=== PATIENT | male | born 1960 | race Caucasian/White ===

== ENCOUNTER 2016-09-08 14:02 | Emergency (ER) | payer OTHER ==
[2016-09-08 15:06] VITALS: BP 138/75
--- NOTE | 2016-09-08 15:24 | UC ---
Knee Pain HPI - HPI Summary HPI Summary: R knee pain gradually worsening for about a week. First noticed a few hours after a mild R ankle sprain. R ankle only hurt for an hour or so, hasn't bothered him since. Now having anterior pain and medial pain, especially with flexion and external rotation. - History of Current Complaint Chief Complaint: UCLowerExtremity Stated Complaint: RIGHT KNEE INJURY/PAIN Time Seen by Provider: 09/08/16 14:50 Hx Obtained From: Patient Onset/Duration: Gradual Onset, Lasting Days Severity Initially: Mild Severity Currently: Moderate Character: Aching, Stiffness Aggravating Factor(s): Weight Bearing, Stairs Alleviating Factor(s): Rest Associated Signs And Symptoms: Positive: Negative Able to Bear Weight: Yes - Allergies/Home Medications Allergies/Adverse Reactions: Allergies Allergy/AdvReac Type Severity Reaction Status Date / Time Pneumococcal Polysaccharides Allergy Severe Airway Verified 09/08/16 14:47 [From Pneumovax] Obstruction Morphine and Related Allergy Intermediate FACIAL Verified 09/08/16 14:47 SWELLING Pregabalin [From Lyrica] Allergy Intermediate Blurred Verified 09/08/16 14:47 Vision Flu Virus Vaccine Allergy Unknown See Comment Verified 09/08/16 14:47 Home Medications: Home Medications Bisacodyl EC TAB* [Dulcolax EC TAB*] 20 mg PO BID 09/08/16 [History Confirmed ] Carvedilol TAB* [Coreg TAB*] 6.25 mg PO BID 09/08/16 [History Confirmed 09/08/16 ] Clopidogrel TAB* [Plavix TAB*] 75 mg PO DAILY 09/08/16 [History Confirmed ] Diazepam TAB(*) [Valium TAB(*)] 10 mg PO Q8H PRN 09/08/16 [History Confirmed ] Linaclotide [Linzess] 145 mcg PO DAILY 09/08/16 [History Confirmed 09/08/16] Pantoprazole TAB (NF) [Protonix TAB (NF)] 1 tab DAILY 09/08/16 [History Confirmed 09/08/16] Potassium Chlor TAB* [Klor Con ER TAB*] 20 meq PO BID 09/08/16 [History Confirmed 09/08/16] Torsemide TAB* [Demadex*] 20 mg PO BID 09/08/16 [History Confirmed 09/08/16] glipiZIDE TAB* [Glucotrol TAB*] 2.5 mg PO DAILY 09/08/16 [History Confirmed ] oxyCODONE SR TAB(*) [Oxycontin 20 mg (*)] 20 mg QID PRN 09/08/16 [History Confirmed 09/08/16] oxyCODONE TAB* [Roxycodone TAB 5 mg*] 10 mg PO Q8H PRN 09/08/16 [History Confirmed 09/08/16] PMH/Surg Hx/FS Hx/Imm Hx Endocrine History Of: Reports: Dyslipidemia Denies: Diabetes, Thyroid Disease, Hyperthyroidism, Hypothyroidism Cardiovascular History Of: Reports: Hypertension Denies: Pacemaker/ICD, Congestive Heart Failure Respiratory History Of: Reports: COPD, Asthma GI/ History Of: Reports: Gastrointestinal Bleed Denies: Gastroesophageal Reflux, Ulcer, Gall Bladder Disease, Kidney Stones, Diverticulitis, Renal Disease, Urosepsis Neurological History Of: Denies: TIA, CVA, Dementia, Seizures, Migraine Psychological History Of: Reports: Anxiety Denies: Depression, Bipolar Disorder, Schizophrenia, Post Traumatic Stress Disorder Cancer History Of: Denies: Lung Cancer, Colorectal Cancer, Breast Cancer, Prostate Cancer, Cervical Cancer Other History Of: Hepatitis C - He had this in 1999. He took interferon taken and he has "recovered." , Anticoagulant Therapy - He was on Plavix, but that was stopped due to the hematochezia. Negative For: HIV, Hepatitis B - Surgical History Surgical History: Yes Surgery Procedure, Year, and Place: CELIAC STENT PLACEMENT--2009 SAFE FOR 3T CONDITIONAL 5 ([address]). BACK SX 2003. MESENTERIC ARTERY PERIPHERAL STENT REPLACEMENT JULY 20141.5 ONLY-([address]). PT HAS CARDS INFO RECORDED. CATARACTS 2014. Carparal tunnel. ELBOW nerve released - Family History Known Family History: Positive: Hypertension - Social History Lives: With Family Alcohol Use: None Substance Use Type: None Smoking Status (MU): Former Smoker Type: Cigarettes Have You Smoked in the Last Year: No When Did the Patient Quit Smoking/Using Tobacco: 1996 - Immunization History Most Recent Influenza Vaccination: 2016 Most Recent Tetanus Shot: UTD Most Recent Pneumonia Vaccination: N/A Review of Systems Constitutional: Negative Skin: Negative Eyes: Negative ENT: Negative Respiratory: Negative Cardiovascular: Negative Gastrointestinal: Negative Genitourinary: Negative Motor: Negative Neurovascular: Negative Musculoskeletal: Arthralgia Neurological: Negative Psychological: Negative All Other Systems Reviewed And Are Negative: Yes Physical Exam Triage Information Reviewed: Yes Appearance: Well-Appearing, Obese Vital Signs: Initial Vital Signs Temp 97.7 F 09/08/16 14:58 Pulse 72 09/08/16 14:58 Resp 18 09/08/16 14:58 BP 138/75 09/08/16 14:58 Pulse Ox 98 09/08/16 14:58 Vital Signs Reviewed: Yes Eye Exam: Normal Eyes: Positive: Conjunctiva Clear ENT Exam: Normal ENT: Positive: Normal ENT inspection, Hearing grossly normal, Pharynx normal, TMs normal Dental Exam: Normal Neck exam: Normal Neck: Positive: Supple, Nontender Respiratory Exam: Normal Respiratory: Positive: Chest non-tender, Lungs clear, No accessory muscle use Cardiovascular Exam: Normal Cardiovascular: Positive: RRR, No Murmur Musculoskeletal: Positive: ROM Limited @ - R knee Neurological Exam: Normal Neurological: Positive: Alert Psychological Exam: Normal Skin Exam: Normal Knee Pain Course/Dx - Differential Dx/Diagnosis Provider Diagnoses: R knee pain. Elevated blood pressure due to pain Discharge - Discharge Plan Condition: Stable Disposition: HOME Patient Education Materials: Knee Pain (ED) Referrals: Canelo Jackson MD [Primary Care Provider] - Additional Instructions: You can take 650-1000mg acetaminophen as needed for pain. Keep using the knee for gentle daily activities and start physical therapy if your pain does not loc in the next few days.
--- NOTE | 2016-09-08 15:53 | RAD ---
INDICATION: Right knee pain. TECHNIQUE: 4 views of the right knee were obtained. FINDINGS: The bones are in normal alignment. No joint effusion or fracture is seen. There is a bony exostosis arising from the proximal fibula measuring 3.1 x 0.6 cm in size possibly representing a small osteochondroma. No other focal osseous abnormalities are seen. Joint spaces appear maintained. IMPRESSION: 1. NO EVIDENCE FOR FRACTURE. 2. POSSIBLE SMALL OSTEOCHONDROMA ARISING FROM THE PROXIMAL FIBULA.
== END 2016-09-08 16:04 | disposition home or self-care (01) ==
LOC: UCCORT 14:02
DX: M25.561 Pain in right knee (principal); R03.0 Elevated blood-pressure reading, without diagnosis of hypertension; E78.5 Hyperlipidemia, unspecified; I10 Essential (primary) hypertension; J44.9 Chronic obstructive pulmonary disease, unspecified; F41.9 Anxiety disorder, unspecified; Z98.49 Cataract extraction status, unspecified eye; Z88.5 Allergy status to narcotic agent; Z88.7 Allergy status to serum and vaccine; Z87.891 Personal history of nicotine dependence
CPT/HCPCS: 99212; G0463

== ENCOUNTER 2018-06-20 12:23 | Emergency (ER) | payer MEDICARE, MEDICAID ==
--- OUTSIDE RECORDS SUMMARY | 2018-06-20 12:42 | XMS REPORT | Continuity of Care Document ---
:1960 External Reference #:[id number] Author Name oLng James DO, MPH Address [address] [place] [address], [address] [place] [address] Care Team Providers Name Role Phone Canelo Jackson M.D. 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 Primary Care Physician Unavailable Payers Type Date Identification Numbers Payment Provider Subscriber Effective: 2017 Policy Number: [id number] [employer] [place] Julio Dowell PayID: [id number] [address] [facility] [place] [address] Effective: 2016 Policy Number: [id number] [employer] [place] Julio Dowell Expires: 2017 PayID: [id number] [address] [place] [address] Effective: 1999 Policy Number: [id number] [facility] Julio Puente Magalys Onset: 1999 Group Number: [id number] [id number] Group Name: Fax - [phone] [place] [address] PayID: [id number] Expires: 2016 Policy Number: [id number] [facility] Julio Puente Magalys PayID: [id number] [address] [address] [place] [address] Effective: 2016 Policy Number: [id number] Medicaid [place] Julio Punete Magalys Expires: 2016 PayID: [id number] [address] [place] [id number] Expires: 2016 Policy Number: [id number] [facility] Julio J Magalys PayID: [id number] [address] [address] [place] [address] Effective: 2016 Policy Number: [id number] Medicaid [place] Julioclaudia Dowell PayID: [id number] [address] [place] [address] Advance Directives Description No Information Available Problems Description No Information Family History Date Family Member(s) Problem(s) Comments Father due to NC () Mother due to Lung Cancer () Children None Siblings 5 one passed due to cancer in 2009 Grandchildren None Social History Type Date Description Comments Sex Unknown Marital Status Occupation Unemployed Work Status Not Currently Working Cigarette Use Former Cigarette Smoker 3 Packs Daily ETOH Use Denies alcohol use Tobacco Use Start: Unknown End: Unknown Patient is a former smoker Smoking Status Reviewed: 05/26/18 Patient is a former smoker Allergies, Adverse Reactions, Alerts Date Description Reaction Status Severity Comments 10/11/2014 Lyrica blurred vision Active 10/11/2014 Morphine Urticaria, swelling Active 10/11/2014 Pneumococcal Vaccines Anaphylaxis Active Medications Medication Date Status Form Strength Qnty SIG Indications Ordering Provider Oxycodone HCL 12/23/ Active Tablets 20mg 120ta si by Heather James bs mouth Long, every 4 to DO, MPH 6 hours as directed chronic pain patient, fill under medicare Oxycodone HCL 11/10/ Active Tablets 10mg 120ta si by Heather James bs mouth Long, every 4 to DO, MPH 6 hours as directed chronic pain patient, fill under Pravastatin / Active Tablets 40mg Unknown Sodium 0000 Citalopram / Active Tablets 40mg 45tab si.5 Unknown Hydrobromide 0000 s by mouth every day as directed Albuterol / Active Aerosol 90mcg/Dos two puffs Unknown Inhalation 0000 e by mouth every 4-6 hours for shortness of breath Aspirin / Active Chewtabs 81mg si by Unknown 0000 mouth every day as directed janna test test only Albuterol Sulfate / Active Nebulizer (2.5mg/3M Unknown 0000 L) 0.083% Buspirone HCL / Active Tablets 10mg si/2 Unknown 0000 by mouth every 6 hours Carvedilol / Active Tablets 3.125mg 1 by mouth Unknown 0000 twice daily Diazepam / Active Tablets 5mg si by Unknown 0000 mouth every 6H chronic pain patient Torsemide / Active Tablets 20mg Unknown 0000 Pantoprazole / Active Tablets DR 40mg 1 by mouth Unknown Sodium 0000 daily Spironolactone / Active Tablets 25mg 1 by mouth Unknown 0000 twice daily Tudorza Pressair / Active Aerosol 400mcg/Ac Unknown 0000 t Symbicort / Active Aerosol 160-4.5mc Unknown 0000 g/Act Ventolin HFA / Active Aerosol 108(90Bas 1-2 puffs Unknown 0000 e) as needed mcg/Act every 4-6 hours for shortness for breath Docusate Sodium & / Active Tablets 8.6-50mg si Unknown Senna Stimulant 0000 three Laxative/Stool times a Softener day as directed Plavix / Active Tablets 75mg 1 by mouth Unknown 0000 daily Miralax / Active Powder 3350NF si Unknown 0000 scoop in 8oz of water x 3 nights as directed Linzess / Active Capsules 145mcg 1 cap by Unknown 0000 mouth every in the morning on empty stomach at least thirty minutes before first meal. Bisacodyl Ec / Active Tablets DR 5mg for Unknown 0000 constipati on. Lidocaine / Active Cream 4% apply to Unknown 0000 affected area three time a day as needed Diclofenac Sodium / Active Gel 3% apply 0.5 Unknown 0000 gm to the lower back 3-4 times a day Xtampza ER 12/10/ Hx C12a 27mg 60uni take one Jacob 2018 - ts by mouth Long, 12/23/ every 12 DO, MPH 2018 hours as directed chronic pain. Zanaflex 08/11/ Hx Tablets 4mg 60tab si/2-1 Jacob 2018 - s by mouth Long, 05/13/ twice a DO, MPH 2018 day as directed chronic pain patient, fill under medicare Oxycodone HCL 05/14/ Hx Tablets 20mg 21tab si by Jacob 2017 - s mouth Long, 12/23/ every 8 DO, MPH 2018 hours as directed chronic pain patient Oxycodone HCL 05/05/ Hx Tablets 10mg 150ta si-2 by Jacob 2017 - bs mouth Long, 11/10/ every 4 to DO, MPH 2018 6 hours as directed chronic pain patient, dosage decrease, fill under ok to fill today Oxycodone HCL 05/20/ Hx Tablets 10mg 90tab si by Jacob 2015 - s mouth Long, 05/14/ every 8 DO, MPH 2017 hours as directed chronic pain patient Amitiza 03/06/ Hx Capsules 8mcg 60cap si by Jacob 2015 - s mouth Long, 08/26/ every 12 DO, MPH 2017 hours. as directed Cymbalta 12/03/ Hx Caps DR 30mg 60cap si by Jacob 2015 - Part s mouth Logn, 05/06/ twice DO, MPH 2016 daily as directed chronic pain patient Oxycodone HCL 10/10/ Hx Tablets 20mg 120ta si by Jacob 2015 - bs mouth Long, 05/05/ every 4 to DO, MPH 2016 6 hours as directed chronic pain patient fill under wc Oxycodone HCL 06/06/ Hx Tablets 10mg 180ta si-2 by Jacob 2015 - bs mouth Long, 10/10/ every 4 to DO, MPH 2015 6 hours as directed chronic pain patient Hysingla ER 02/26/ Hx T24a 30mg 60uni si by Jacob 2014 - ts mouth Long, 05/07/ every day DO, MPH 2014 as directed chronic pain patient Hysingla ER 02/15/ Hx T24a 30mg 30uni si by Jacob 2014 - ts mouth Long, 02/26/ every day DO, MPH 2014 chronic pain patient Oxycontin 12/18/ Hx Tab ER 12H 30mg 60tab si by Genesis James - Abuse-Det s mouth Long, 02/15/ every 12 DO, MPH 2014 hours Dilaudid 12/18/ Hx Tablets 4mg 180ta si by Jacob 2014 - bs mouth Long, 02/15/ every 4-6 DO, MPH 2014 hours as directed chronic pain patient Oxycontin 12/05/ Hx Tab ER 12H 20mg 60tab si by Genesis James - Abuse-Det s mouth Long, 12/18/ every 12 DO, MPH 2015 hours chronic pain patient Oxycontin 11/12/ Hx Tab ER 12H 10mg 60tab take one Genesis James - Abuse-Det s tablet by Long, 12/05/ mouth DO, MPH 2014 every 12 hours as directed chronic pain. Dilaudid 11/05/ Hx Tablets 2mg 240ta si-2 Genesis James - bs every 6 Long, 12/18/ hours as DO, MPH 2014 directed chronic pain patient Gralise 10/29/ Hx Tablets 600mg 30tab si by Jacob 2014 - s mouth Long, 02/15/ every at DO, MPH 2014 night Oxymorphone HCL 10/18/ Hx Tablets ER 10mg 60tab 1 by mouth Jacob, ER 2014 - 12HR s every 12 Long, 11/05/ hours DO, MPH 2014 Oxymorphone HCL 10/18/ Hx Tablets 10mg 120ta si Genesis James bs every 4 to [place], 11/05/ 6 hours DO, MPH 2014 chronic pain patient Gabapentin 10/18/ Hx Capsules 300mg 90cap si by Jacob 2014 - s mouth Long, 04/13/ three DO, MPH 2016 times a day as directed Opana 10/11/ Hx Tablets 5mg 120ta si by Jacob 2014 - bs mouth Long, 11/05/ every 6 to DO, MPH 2014 8 hours as directed chronic pain patient Flector 10/11/ Hx Patches 1.3% 60uni si Jacob 2014 - ts apply to Long, 07/04/ affected DO, MPH 2016 area every 12 hours chronic pain patient Clopidogrel / Hx Tablets 75mg Unknown Bisulfate - 2014 Hydrocodone-Aceta / Hx Tablets 10-325mg 1-2 to by Unknown minophen 0000 - mouth 10/11/ every 4 2014 hours Tizanidine HCL / Hx Tablets 4mg si by Unknown 0000 - mouth 10/29/ every 8 2014 hours as directed Diazepam // Hx Tablets 5mg si by Unknown 0000 - mouth 10/11/ every 6 2014 hours prn Trazodone HCL 00/ Hx Tablets 100mg si-3 Jacob 0000 - by mouth Long, 10/29/ every DO, MPH 2014 night at bedtime as directed Hydromorphone HCL / Hx T24a 12mg 1 by mouth Unknown ER 0000 - every 12 10/11/ hours 2014 Ipratropium /00/ Hx Solution 0.02% Unknown [place] 0000 - 2017 Prednisone 00/00/ Hx Tablets 20mg taper Unknown 0000 - 2017 Bystolic /00/ Hx Tablets 5mg 30tab 1 qd Unknown 0000 - s 2017 Gabapentin /00/ Hx Capsules 100mg si by Unknown 0000 - mouth at night 2017 Fiber Complete 00/00/ Hx Tablets Unknown 0000 - 2017 Glipizide ER 00/ Hx Tablets ER 2.5mg 1/2 by Unknown 0000 - 24HR mouth daily 2017 Klor-Con 10 0000/ Hx Tablets ER 10Meq 1 by mouth Unknown 0000 - three 05/13/ times a 2017 day Diphenhydramine 00/ Hx Capsules 25mg 1 by mouth Unknown HCL 0000 - daily 2017 Cyclobenzaprine 00/ Hx Tablets 10mg si by Unknown HCL 0000 - mouth 05/13/ twice a 2017 day as directed Fentanyl 00/00/ Hx Patches 50mcg/HR si Unknown 0000 - 72HR applied 09/07/ q72h as 2017 directed chronic pain patient Lidocaine 00/00/ Hx Patches 5% apply 1 Unknown 0000 - every 10 08/09/ hours to 2017 affected area as directed Linzess 00/00/ Hx Capsules 145mcg 1 cap by Unknown 0000 - mouth 07/27/ every in 2016 the morning on empty stomach at least thirty minutes before first meal. Lidocaine 00/00/ Hx Ointment 5% apply Unknown 0000 - 0.5-1 0816/ grams to 2017 affected area 3-4 times a day Hydroxyzine HCL /00/ Hx Tablets 25mg si by Unknown 0000 - mouth 02/03/ 2017 evening as directed chronic Immunizations Description No Information Available Vital Signs Date Vital Result Comment 05/26/2018 9:06am BP Systolic 136 mmHg BP Diastolic 82 mmHg Heart Rate 84 /min Respiratory Rate 20 /min Height 64 inches 5'4" Weight 200.00 lb Pain Level 7 Pain at this time. Pain Level With Medicine 6 on average with meds Pain Level Without Medicine 10 10 without meds BMI (Body Mass Index) 34.3 kg/m2 05/13/2018 8:59am BP Systolic 144 mmHg BP Diastolic 86 mmHg Heart Rate 82 /min Respiratory Rate 20 /min Height 64 inches 5'4" Weight 200.00 lb Pain Level 6 Pain at this time. Pain Level With Medicine 5 on average with meds Pain Level Without Medicine 10 03/02 without meds BMI (Body Mass Index) 34.3 kg/m2 04/27/2018 9:26am BP Systolic 140 mmHg BP Diastolic 86 mmHg Heart Rate 82 /min Respiratory Rate 20 /min Height 64 inches 5'4" Weight 200.00 lb Pain Level 8 Pain at this time. Pain Level With Medicine 7 on average with meds Pain Level Without Medicine 10 03/02 without meds BMI (Body Mass Index) 34.3 kg/m2 04/11/2018 9:15am BP Systolic 132 mmHg BP Diastolic 84 mmHg Heart Rate 80 /min Respiratory Rate 20 /min Height 64 inches 5'4" Weight 200.00 lb Pain Level 6 Pain at this time. Pain Level With Medicine 6 on average with meds Pain Level Without Medicine 10 03/02 without meds BMI (Body Mass Index) 34.3 kg/m2 03/24/2018 10:06am BP Systolic 140 mmHg BP Diastolic 82 mmHg Heart Rate 88 /min Respiratory Rate 20 /min Height 64 inches 5'4" Weight 204.00 lb Pain Level 7 Pain at this time. Pain Level With Medicine 6 on average with meds Pain Level Without Medicine 03/02 without meds BMI (Body Mass Index) 35.0 kg/m2 03/10/2018 8:51am BP Systolic 148 mmHg BP Diastolic 84 mmHg Heart Rate 80 /min Respiratory Rate 20 /min Height 64 inches 5'4" Weight 204.00 lb Pain Level 7 Pain at this time. Pain Level With Medicine 6 on average with meds Pain Level Without Medicine 10 03/02 without meds BMI (Body Mass Index) 35.0 kg/m2 02/22/2018 9:48am BP Systolic 148 mmHg BP Diastolic 86 mmHg Heart Rate 82 /min Respiratory Rate 20 /min Height 64 inches 5'4" Weight 220.00 lb Pain Level 7 Pain at this time. Pain Level With Medicine 7 on average with meds Pain Level Without Medicine 10 03/02 without meds BMI (Body Mass Index) 37.8 kg/m2 02/11/2018 8:53am Respiratory Rate 20 /min Height 64 inches 5'4" Pain Level Without Medicine 10 03/02 without meds 01/21/2018 10:59am BP Systolic 140 mmHg BP Diastolic 86 mmHg Heart Rate 80 /min Respiratory Rate 20 /min Height 64 inches 5'4" Weight 205.00 lb Pain Level 9 Pain at this time. Pain Level With Medicine 9 on average with meds Pain Level Without Medicine 10 03/02 without meds BMI (Body Mass Index) 35.2 kg/m2 01/10/2018 9:54am BP Systolic 136 mmHg BP Diastolic 86 mmHg Heart Rate 84 /min Respiratory Rate 20 /min Height 64 inches 5'4" Weight 205.00 lb Pain Level 8 Pain at this time. Pain Level With Medicine 7 on average with meds Pain Level Without Medicine 10 03/02 without meds BMI (Body Mass Index) 35.2 kg/m2 12/23/2017 10:03am BP Systolic 152 mmHg BP Diastolic 92 mmHg Heart Rate 104 /min Respiratory Rate 20 /min Height 64 inches 5'4" Weight 215.00 lb Pain Level 9 Pain at this time. Pain Level With Medicine 8 on average with meds Pain Level Without Medicine 10 03/02 without meds BMI (Body Mass Index) 36.9 kg/m2 12/10/2017 9:14am BP Systolic 128 mmHg BP Diastolic 84 mmHg Heart Rate 80 /min Respiratory Rate 20 /min Height 64 inches 5'4" Weight 230.00 lb Pain Level 9 Pain at this time. Pain Level With Medicine 9 on average with meds Pain Level Without Medicine 10 03/02 without meds BMI (Body Mass Index) 39.5 kg/m2 12/09/2017 9:16am BP Systolic 144 mmHg BP Diastolic 78 mmHg Heart Rate 76 /min Respiratory Rate 20 /min Height 64 inches 5'4" Weight 230.00 lb Pain Level 8 Pain at this time. Pain Level With Medicine 5 on average with meds Pain Level Without Medicine 10 03/02 without meds BMI (Body Mass Index) 39.5 kg/m2 11/11/2017 8:59am BP Systolic 130 mmHg BP Diastolic 78 mmHg Heart Rate 74 /min Respiratory Rate 20 /min Height 64 inches 5'4" Weight 230.00 lb Pain Level 6 Pain at this time. Pain Level With Medicine 5 on average with meds Pain Level Without Medicine 10 03/02 without meds BMI (Body Mass Index) 39.5 kg/m2 11/10/2017 9:02am BP Systolic 144 mmHg BP Diastolic 86 mmHg Heart Rate 100 /min Respiratory Rate 20 /min Height 64 inches 5'4" Weight 230.00 lb O2 % BldC Oximetry 85 % Pain Level 9 Pain at this time. Pain Level With Medicine 9 on average with meds Pain Level Without Medicine 10 03/02 without meds BMI (Body Mass Index) 39.5 kg/m2 10/12/2017 9:18am BP Systolic 142 mmHg BP Diastolic 88 mmHg Heart Rate 92 /min Respiratory Rate 20 /min Height 64 inches 5'4" Weight 230.00 lb O2 % BldC Oximetry 92 % Pain Level 7 Pain at this time. Pain Level With Medicine 6 on average with meds Pain Level Without Medicine 10 03/02 without meds BMI (Body Mass Index) 39.5 kg/m2 10/11/2017 9:19am BP Systolic 144 mmHg BP Diastolic 86 mmHg Heart Rate 88 /min Respiratory Rate 20 /min Height 64 inches 5'4" Weight 230.00 lb Pain Level 8 Pain at this time. Pain Level With Medicine 7 on average with meds Pain Level Without Medicine 10 03/02 without meds BMI (Body Mass Index) 39.5 kg/m2 09/10/2017 10:11am BP Systolic 140 mmHg BP Diastolic 82 mmHg Heart Rate 80 /min Respiratory Rate 20 /min Height 64 inches 5'4" Weight 238.00 lb Pain Level 8 Pain at this time. Pain Level With Medicine 7 on average with meds Pain Level Without Medicine 10 03/02 without meds BMI (Body Mass Index) 40.8 kg/m2 09/09/2017 10:28am BP Systolic 142 mmHg BP Diastolic 86 mmHg Heart Rate 84 /min Respiratory Rate 20 /min Height 64 inches 5'4" Weight 238.00 lb Pain Level 7 Pain at this time. Pain Level With Medicine 6 on average with meds Pain Level Without Medicine 10 03/02 without meds BMI (Body Mass Index) 40.8 kg/m2 08/11/2017 9:21am BP Systolic 136 mmHg BP Diastolic 86 mmHg Heart Rate 82 /min Respiratory Rate 20 /min Height 64 inches 5'4" Weight 238.00 lb Pain Level 7 Pain at this time. Pain Level With Medicine 6 on average with meds Pain Level Without Medicine 10 03/02 without meds BMI (Body Mass Index) 40.8 kg/m2 08/10/2017 9:06am BP Systolic 136 mmHg BP Diastolic 84 mmHg Heart Rate 86 /min Respiratory Rate 20 /min Height 64 inches 5'4" Weight 238.00 lb Pain Level 8 Pain at this time. Pain Level With Medicine 7 on average with meds Pain Level Without Medicine 10 03/02 without meds BMI (Body Mass Index) 40.8 kg/m2 07/14/2017 2:04pm BP Systolic 136 mmHg BP Diastolic 82 mmHg Heart Rate 84 /min Respiratory Rate 20 /min Height 64 inches 5'4" Weight 238.00 lb Pain Level 7 Pain at this time. Pain Level With Medicine 6 on average with meds Pain Level Without Medicine 10 03/02 without meds BMI (Body Mass Index) 40.8 kg/m2 07/07/2017 9:29am BP Systolic 142 mmHg BP Diastolic 86 mmHg Heart Rate 84 /min Respiratory Rate 20 /min Height 64 inches 5'4" Weight 238.00 lb Pain Level 7 Pain at this time. Pain Level With Medicine 6 on average with meds Pain Level Without Medicine 10 03/02 without meds BMI (Body Mass Index) 40.8 kg/m2 06/14/2017 2:50pm BP Systolic 144 mmHg BP Diastolic 86 mmHg Heart Rate 84 /min Respiratory Rate 20 /min Height 64 inches 5'4" Weight 238.00 lb Pain Level 7 Pain at this time. Pain Level With Medicine 6 on average with meds Pain Level Without Medicine 03/02 without meds BMI (Body Mass Index) 40.8 kg/m2 06/07/2017 9:51am BP Systolic 128 mmHg BP Diastolic 80 mmHg Heart Rate 76 /min Respiratory Rate 20 /min Height 64 inches 5'4" Weight 238.00 lb Pain Level 7 Pain at this time. Pain Level With Medicine 6 on average with meds Pain Level Without Medicine 10 03/02 without meds BMI (Body Mass Index) 40.8 kg/m2 05/25/2017 2:16pm BP Systolic 148 mmHg BP Diastolic 80 mmHg Heart Rate 84 /min Respiratory Rate 20 /min Height 64 inches 5'4" Weight 238.00 lb Pain Level 7 Pain at this time. Pain Level With Medicine 6 on average with meds Pain Level Without Medicine 10 03/02 without meds BMI (Body Mass Index) 40.8 kg/m2 05/14/2017 10:25am BP Systolic 140 mmHg BP Diastolic 86 mmHg Heart Rate 74 /min Respiratory Rate 20 /min Height 64 inches 5'4" Weight 238.00 lb Pain Level 6 Pain at this time. Pain Level With Medicine 5 on average with meds Pain Level Without Medicine 10 03/02 without meds BMI (Body Mass Index) 40.8 kg/m2 05/05/2017 11:12am BP Systolic 136 mmHg BP Diastolic 84 mmHg Heart Rate 82 /min Respiratory Rate 20 /min Height 64 inches 5'4" Weight 238.00 lb Pain Level 8 Pain at this time. Pain Level With Medicine 7 on average with meds Pain Level Without Medicine 10 03/02 without meds BMI (Body Mass Index) 40.8 kg/m2 04/23/2017 1:05pm BP Systolic 138 mmHg BP Diastolic 82 mmHg Heart Rate 78 /min Respiratory Rate 20 /min Height 64 inches 5'4" Weight 238.00 lb Pain Level 7 Pain at this time. Pain Level With Medicine 6 on average with meds Pain Level Without Medicine 10 03/02 without meds BMI (Body Mass Index) 40.8 kg/m2 04/07/2017 10:46am BP Systolic 140 mmHg BP Diastolic 78 mmHg Heart Rate 76 /min Respiratory Rate 20 /min Height 64 inches 5'4" Pain Level 4 Pain at this time. Pain Level With Medicine 4 on average with meds Pain Level Without Medicine 03/02 without meds 03/24/2017 2:21pm BP Systolic 144 mmHg BP Diastolic 86 mmHg Heart Rate 80 /min Respiratory Rate 20 /min Height 64 inches 5'4" Weight 238.00 lb Pain Level 4 Pain at this time. Pain Level With Medicine 4 on average with meds Pain Level Without Medicine 03/02 without meds BMI (Body Mass Index) 40.8 kg/m2 03/08/2017 11:07am BP Systolic 136 mmHg BP Diastolic 80 mmHg Heart Rate 76 /min Respiratory Rate 16 /min Height 64 inches 5'4" Weight 238.00 lb Pain Level 7 11/30, Pain at this time. Pain Level With Medicine 7 11/30, on average with meds Pain Level Without Medicine 10 03/02 without meds BMI (Body Mass Index) 40.8 kg/m2 02/18/2017 2:31pm BP Systolic 132 mmHg BP Diastolic 78 mmHg Heart Rate 76 /min Respiratory Rate 20 /min Height 64 inches 5'4" Weight 236.00 lb Pain Level 8 Pain at this time. Pain Level With Medicine 7 on average with meds Pain Level Without Medicine 10 03/02 without meds BMI (Body Mass Index) 40.5 kg/m2 02/03/2017 11:04am BP Systolic 136 mmHg BP Diastolic 80 mmHg Heart Rate 72 /min Respiratory Rate 16 /min Height 64 inches 5'4" Weight 236.00 lb Pain Level 7 7/10, Pain at this time. Pain Level With Medicine 7 7/10, on average with meds Pain Level Without Medicine 10 03/02 without meds BMI (Body Mass Index) 40.5 kg/m2 01/21/2017 2:52pm BP Systolic 130 mmHg BP Diastolic 80 mmHg Heart Rate 84 /min Respiratory Rate 20 /min Height 64 inches 5'4" Weight 231.00 lb Pain Level 8 Pain at this time. Pain Level With Medicine 7 on average with meds Pain Level Without Medicine 10 03/02 without meds BMI (Body Mass Index) 39.6 kg/m2 01/06/2017 11:43am BP Systolic 136 mmHg BP Diastolic 78 mmHg Heart Rate 76 /min Respiratory Rate 16 /min Height 64 inches 5'4" Weight 231.00 lb Pain Level 6 6/10, Pain at this time. Pain Level With Medicine 6 6/10, on average with meds Pain Level Without Medicine 10 03/02 without meds BMI (Body Mass Index) 39.6 kg/m2 12/25/2016 10:57am Respiratory Rate 18 /min Height 64 inches 5'4" Weight 224.00 lb Pain Level 6 Pain at this time. Pain Level With Medicine 5 on average with meds Pain Level Without Medicine 10 03/02 without meds BMI (Body Mass Index) 38.4 kg/m2 12/07/2016 2:04pm BP Systolic 138 mmHg BP Diastolic 86 mmHg Heart Rate 84 /min Respiratory Rate 20 /min Height 64 inches 5'4" Weight 224.00 lb Pain Level 6 Pain at this time. Pain Level With Medicine 5 on average with meds Pain Level Without Medicine 10 03/02 without meds BMI (Body Mass Index) 38.4 kg/m2 11/20/2016 10:58am BP Systolic 148 mmHg BP Diastolic 86 mmHg Heart Rate 80 /min Respiratory Rate 20 /min Height 64 inches 5'4" Weight 232.00 lb Pain Level 6 Pain at this time. Pain Level With Medicine 5 on average with meds Pain Level Without Medicine 10 03/02 without meds BMI (Body Mass Index) 39.8 kg/m2 11/04/2016 10:02am BP Systolic 142 mmHg BP Diastolic 86 mmHg Heart Rate 76 /min Respiratory Rate 20 /min Height 64 inches 5'4" Weight 232.00 lb Pain Level 6 Pain at this time. Pain Level With Medicine 6 on average with meds Pain Level Without Medicine 10 03/02 without meds BMI (Body Mass Index) 39.8 kg/m2 10/23/2016 10:57am BP Systolic 132 mmHg BP Diastolic 84 mmHg Heart Rate 80 /min Respiratory Rate 20 /min Height 64 inches 5'4" Weight 232.00 lb Pain Level 8 Pain at this time. Pain Level With Medicine 7 on average with meds Pain Level Without Medicine 10 03/02 without meds BMI (Body Mass Index) 39.8 kg/m2 10/06/2016 10:30am BP Systolic 136 mmHg BP Diastolic 84 mmHg Heart Rate 82 /min Respiratory Rate 20 /min Height 64 inches 5'4" Weight 232.00 lb Pain Level 7 Pain at this time. Pain Level With Medicine 6 on average with meds Pain Level Without Medicine 10 03/02 without meds BMI (Body Mass Index) 39.8 kg/m2 09/24/2016 11:21am BP Systolic 136 mmHg BP Diastolic 84 mmHg Heart Rate 88 /min Respiratory Rate 20 /min Height 64 inches 5'4" Weight 235.00 lb Pain Level 7 Pain at this time. Pain Level With Medicine 6 on average with meds Pain Level Without Medicine 10 03/02 without meds BMI (Body Mass Index) 40.3 kg/m2 09/07/2016 10:20am BP Systolic 140 mmHg BP Diastolic 80 mmHg Heart Rate 78 /min Respiratory Rate 16 /min Height 64 inches 5'4" Weight 225.00 lb Pain Level 7 7/10, Pain at this time. Pain Level With Medicine 7 7/10, on average with meds Pain Level Without Medicine 10 03/02 without meds BMI (Body Mass Index) 38.6 kg/m2 08/26/2016 2:28pm BP Systolic 136 mmHg BP Diastolic 76 mmHg Heart Rate 78 /min Respiratory Rate 16 /min Height 64 inches 5'4" Weight 234.00 lb Pain Level 5 5/10, Pain at this time. Pain Level With Medicine 5 5/10, on average with meds Pain Level Without Medicine 10 10/10 without meds BMI (Body Mass Index) 40.2 kg/m2 08/07/2016 10:22am BP Systolic 140 mmHg BP Diastolic 86 mmHg Heart Rate 84 /min Respiratory Rate 20 /min Height 64 inches 5'4" Weight 230.00 lb Pain Level 6 6/10,Pain at this time. Pain Level With Medicine 6 6/10, on average with meds Pain Level Without Medicine 10 10/10 without meds BMI (Body Mass Index) 39.5 kg/m2 07/27/2016 1:56pm BP Systolic 132 mmHg BP Diastolic 80 mmHg Heart Rate 66 /min Respiratory Rate 16 /min Height 64 inches 5'4" Weight 230.00 lb O2 % BldC Oximetry 97 % Pain Level 5 5/10, Pain at this time. Pain Level With Medicine 5 5/10, on average with meds Pain Level Without Medicine 10 1010 without meds BMI (Body Mass Index) 39.5 kg/m2 07/07/2016 11:01am BP Systolic 132 mmHg BP Diastolic 82 mmHg Heart Rate 70 /min Respiratory Rate 16 /min Height 64 inches 5'4" Weight 230.00 lb Pain Level 6 6/10, Pain at this time. Pain Level With Medicine 6 6/10, on average with meds Pain Level Without Medicine 10 1010 without meds BMI (Body Mass Index) 39.5 kg/m2 06/26/2016 1:14pm BP Systolic 136 mmHg BP Diastolic 76 mmHg Heart Rate 78 /min Respiratory Rate 16 /min Height 64 inches 5'4" Weight 229.00 lb Pain Level 8 8/10, Pain at this time. Pain Level With Medicine 5 5/10, on average with meds Pain Level Without Medicine 10 10/10 without meds BMI (Body Mass Index) 39.3 kg/m2 06/04/2016 10:51am BP Systolic 140 mmHg BP Diastolic 78 mmHg Heart Rate 76 /min Respiratory Rate 16 /min Height 64 inches 5'4" Weight 236.00 lb Pain Level 7 7/10, Pain at this time. Pain Level With Medicine 7 7/10, on average with meds Pain Level Without Medicine 10 10/10 without meds BMI (Body Mass Index) 40.5 kg/m2 05/20/2016 11:30am BP Systolic 138 mmHg BP Diastolic 80 mmHg Heart Rate 70 /min Respiratory Rate 18 /min Height 64 inches 5'4" Weight 236.00 lb Pain Level 9 9 Pain Level With Medicine 9 9 Pain Level Without Medicine 10 03/02 without meds BMI (Body Mass Index) 40.5 kg/m2 05/06/2016 11:04am BP Systolic 136 mmHg BP Diastolic 76 mmHg Heart Rate 76 /min Respiratory Rate 18 /min Height 64 inches 5'4" Weight 238.00 lb Pain Level 8 Pain at this time. Pain Level With Medicine 7 on average with meds Pain Level Without Medicine 10 03/02 without meds BMI (Body Mass Index) 40.8 kg/m2 04/07/2016 10:07am BP Systolic 140 mmHg BP Diastolic 86 mmHg Heart Rate 94 /min Respiratory Rate 20 /min Height 64 inches 5'4" Weight 238.00 lb O2 % BldC Oximetry 94 % Room Air Pain Level 9 Pain at this time. Pain Level With Medicine 7 on average with meds Pain Level Without Medicine 10 03/02 without meds BMI (Body Mass Index) 40.8 kg/m2 03/06/2016 9:46am BP Systolic 130 mmHg BP Diastolic 80 mmHg Heart Rate 76 /min Respiratory Rate 18 /min Height 64 inches 5'4" Weight 236.00 lb Pain Level 7 7/10, Pain at this time. Pain Level With Medicine 7 10, on average with meds Pain Level Without Medicine 10 03/02 without meds BMI (Body Mass Index) 40.5 kg/m2 02/07/2016 9:29am BP Systolic 132 mmHg BP Diastolic 84 mmHg Heart Rate 76 /min Respiratory Rate 20 /min Height 64 inches 5'4" Weight 236.00 lb Pain Level 6 Pain at this time. Pain Level With Medicine 5 on average with meds Pain Level Without Medicine 10 03/02 without meds BMI (Body Mass Index) 40.5 kg/m2 01/07/2016 9:02am BP Systolic 142 mmHg BP Diastolic 86 mmHg Heart Rate 76 /min Respiratory Rate 20 /min Height 64 inches 5'4" Weight 235.00 lb Pain Level 7 Pain at this time. Pain Level With Medicine 6 on average with meds Pain Level Without Medicine 10 03/02 without meds BMI (Body Mass Index) 40.3 kg/m2 12/04/2015 2:59pm BP Systolic 142 mmHg BP Diastolic 86 mmHg Heart Rate 80 /min Respiratory Rate 20 /min Height 64 inches 5'4" Weight 235.00 lb Pain Level 8 Pain at this time. Pain Level With Medicine 7 on average with meds Pain Level Without Medicine 10 03/02 without meds BMI (Body Mass Index) 40.3 kg/m2 11/06/2015 3:41pm BP Systolic 152 mmHg BP Diastolic 86 mmHg Heart Rate 88 /min Respiratory Rate 20 /min Height 64 inches 5'4" Weight 225.00 lb Pain Level 6 Pain at this time. Pain Level With Medicine 6 on average with meds Pain Level Without Medicine 03/02 without meds BMI (Body Mass Index) 38.6 kg/m2 10/11/2015 1:18pm BP Systolic 148 mmHg BP Diastolic 86 mmHg Heart Rate 80 /min Respiratory Rate 20 /min Height 64 inches 5'4" Weight 234.00 lb Pain Level 9 Pain at this time. Pain Level With Medicine 8 on average with meds Pain Level Without Medicine 03/02 without meds BMI (Body Mass Index) 40.2 kg/m2 10/01/2015 10:18am BP Systolic 158 mmHg BP Diastolic 86 mmHg Heart Rate 84 /min Respiratory Rate 20 /min Height 64 inches 5'4" Weight 231.00 lb Pain Level 7 Pain at this time. Pain Level With Medicine 7 on average with meds Pain Level Without Medicine 03/02 without meds BMI (Body Mass Index) 39.6 kg/m2 09/04/2015 10:07am BP Systolic 146 mmHg BP Diastolic 82 mmHg Heart Rate 80 /min Respiratory Rate 20 /min Height 64 inches 5'4" Weight 224.00 lb Pain Level 7 Pain at this time. Pain Level With Medicine 6 on average with meds Pain Level Without Medicine 03/02 without meds BMI (Body Mass Index) 38.4 kg/m2 07/30/2015 9:20am BP Systolic 142 mmHg BP Diastolic 86 mmHg Heart Rate 84 /min Respiratory Rate 20 /min Height 64 inches 5'4" Weight 224.00 lb Pain Level 7 Pain at this time. Pain Level With Medicine 6 on average with meds Pain Level Without Medicine 10 03/02 without meds BMI (Body Mass Index) 38.4 kg/m2 07/04/2015 10:06am BP Systolic 140 mmHg BP Diastolic 82 mmHg Heart Rate 88 /min Respiratory Rate 20 /min Height 64 inches 5'4" Weight 227.00 lb Pain Level 7 Pain at this time. Pain Level With Medicine 6 on average with meds Pain Level Without Medicine 10 03/02 without meds BMI (Body Mass Index) 39.0 kg/m2 07/01/2015 2:52pm BP Systolic 138 mmHg BP Diastolic 86 mmHg Heart Rate 84 /min Respiratory Rate 20 /min Height 64 inches 5'4" Weight 230.00 lb Pain Level 8 Pain at this time. Pain Level With Medicine 7 on average with meds Pain Level Without Medicine 10 03/02 without meds Pain Level After Procedure 4 BP Systolic Recheck 152 mmHg Pulse:84 BP Diastolic Recheck 82 mmHg Pulse:84 BMI (Body Mass Index) 39.5 kg/m2 06/06/2015 9:15am BP Systolic 142 mmHg BP Diastolic 86 mmHg Heart Rate 84 /min Respiratory Rate 20 /min Height 64 inches 5'4" Weight 230.00 lb Pain Level 6 Pain at this time. Pain Level With Medicine 6 on average with meds Pain Level Without Medicine 10 03/02 without meds BMI (Body Mass Index) 39.5 kg/m2 05/29/2015 10:34am BP Systolic 150 mmHg BP Diastolic 86 mmHg Heart Rate 84 /min Respiratory Rate 20 /min Height 64 inches 5'4" Weight 230.00 lb Pain Level 7 11/30, Pain at this time. Pain Level With Medicine 6 /10, on average with meds Pain Level Without Medicine 10 03/02 without meds BMI (Body Mass Index) 39.5 kg/m2 05/07/2015 9:17am BP Systolic 142 mmHg BP Diastolic 86 mmHg Heart Rate 80 /min Respiratory Rate 20 /min Height 64 inches 5'4" Weight 230.00 lb Pain Level 7 Pain at this time. Pain Level With Medicine 6 on average with meds Pain Level Without Medicine 10 03/02 without meds BMI (Body Mass Index) 39.5 kg/m2 04/29/2015 9:46am BP Systolic 150 mmHg BP Diastolic 82 mmHg Heart Rate 76 /min Respiratory Rate 18 /min Height 64 inches 5'4" Weight 226.00 lb Pain Level 7 7/10, Pain at this time. Pain Level With Medicine 5 5/10, on average with meds Pain Level Without Medicine 10 03/02 without meds Pain Level After Procedure 4 BP Systolic Recheck 136 mmHg Pulse: 84 BP Diastolic Recheck 80 mmHg Pulse: 84 BMI (Body Mass Index) 38.8 kg/m2 03/29/2015 9:13am BP Systolic 146 mmHg BP Diastolic 82 mmHg Heart Rate 80 /min Respiratory Rate 20 /min Height 64 inches 5'4" Weight 223.00 lb Pain Level 6 6/10, Pain at this time. Pain Level With Medicine 5 5/10, on average with meds Pain Level Without Medicine 10 03/02 without meds BMI (Body Mass Index) 38.3 kg/m2 03/27/2015 10:25am BP Systolic 136 mmHg BP Diastolic 78 mmHg Heart Rate 82 /min Respiratory Rate 20 /min Height 64 inches 5'4" Weight 220.00 lb Pain Level 7 Pain at this time. Pain Level With Medicine 7 on average with meds Pain Level Without Medicine 10 03/02 without meds Pain Level After Procedure 4 BP Systolic Recheck 136 mmHg Pulse:78 BP Diastolic Recheck 80 mmHg Pulse:78 BMI (Body Mass Index) 37.8 kg/m2 02/26/2015 4:28pm BP Systolic 136 mmHg BP Diastolic 78 mmHg Heart Rate 76 /min Respiratory Rate 18 /min Height 64 inches 5'4" Weight 216.00 lb Pain Level 6 Pain Level With Medicine 6 Pain Level Without Medicine 10 BMI (Body Mass Index) 37.1 kg/m2 02/21/2015 9:12am BP Systolic 126 mmHg BP Diastolic 84 mmHg Heart Rate 78 /min Respiratory Rate 18 /min Height 64 inches 5'4" Weight 216.00 lb Pain Level 6 6/10, Pain at this time. Pain Level With Medicine 5 /10, on average with meds Pain Level Without Medicine 10 03/02 without meds BMI (Body Mass Index) 37.1 kg/m2 02/20/2015 9:45am BP Systolic 146 mmHg BP Diastolic 84 mmHg Heart Rate 80 /min Respiratory Rate 20 /min Height 64 inches 5'4" Weight 216.00 lb Pain Level 6 Pain at this time. Pain Level With Medicine 5 on average with meds Pain Level Without Medicine 10 03/02 without meds Pain Level After Procedure 3 BP Systolic Recheck 128 mmHg Pulse: 80 BP Diastolic Recheck 78 mmHg Pulse: 80 BMI (Body Mass Index) 37.1 kg/m2 02/18/2015 11:39am BP Systolic 142 mmHg BP Diastolic 86 mmHg Heart Rate 84 /min Respiratory Rate 20 /min Height 64 inches 5'4" Weight 211.00 lb Pain Level 8 Pain at this time. Pain Level With Medicine 8 on average with meds Pain Level Without Medicine 10 10/10 without meds BMI (Body Mass Index) 36.2 kg/m2 02/15/2015 9:33am BP Systolic 148 mmHg BP Diastolic 86 mmHg Heart Rate 112 /min Respiratory Rate 20 /min Height 64 inches 5'4" Weight 211.00 lb Pain Level 8 Pain at this time. Pain Level With Medicine 6 on average with meds Pain Level Without Medicine 10 10/10 without meds BMI (Body Mass Index) 36.2 kg/m2 01/21/2015 9:38am BP Systolic 152 mmHg BP Diastolic 86 mmHg Heart Rate 84 /min Respiratory Rate 20 /min Height 64 inches 5'4" Weight 210.00 lb Pain Level 8 Pain at this time. Pain Level With Medicine 7 on average with meds Pain Level Without Medicine 10 10 without meds Pain Level After Procedure 5 BP Systolic Recheck 140 mmHg Pulse: 80 BP Diastolic Recheck 82 mmHg Pulse: 80 BMI (Body Mass Index) 36.0 kg/m2 01/17/2015 10:30am BP Systolic 134 mmHg BP Diastolic 80 mmHg Heart Rate 86 /min Respiratory Rate 20 /min Height 64 inches 5'4" Weight 211.00 lb Pain Level 8 8/10, Pain at this time. Pain Level With Medicine 7 7/10, on average with meds Pain Level Without Medicine 10 10/10 without meds BMI (Body Mass Index) 36.2 kg/m2 01/02/2015 9:48am BP Systolic 138 mmHg BP Diastolic 82 mmHg Heart Rate 84 /min Respiratory Rate 20 /min Height 64 inches 5'4" Weight 205.00 lb Pain Level 8 8/10, Pain at this time. Pain Level With Medicine 7 7/10, on average with meds Pain Level Without Medicine 10 10/10 without meds Pain Level After Procedure 7 BP Systolic Recheck 130 mmHg Pulse: 80 BP Diastolic Recheck 80 mmHg Pulse: 80 BMI (Body Mass Index) 35.2 kg/m2 12/18/2014 9:55am BP Systolic 148 mmHg BP Diastolic 86 mmHg Heart Rate 84 /min Respiratory Rate 20 /min Height 64 inches 5'4" Weight 205.00 lb Pain Level 8 Pain at this time. Pain Level With Medicine 7 on average with meds Pain Level Without Medicine 10 03/02 without meds BMI (Body Mass Index) 35.2 kg/m2 12/05/2014 9:06am BP Systolic 128 mmHg BP Diastolic 78 mmHg Heart Rate 76 /min Respiratory Rate 20 /min Height 64 inches 5'4" Weight 202.00 lb Pain Level 8 Pain at this time. Pain Level With Medicine 7 on average with meds Pain Level Without Medicine 03/02 without meds BMI (Body Mass Index) 34.7 kg/m2 12/04/2014 9:50am BP Systolic 138 mmHg BP Diastolic 86 mmHg Heart Rate 84 /min Respiratory Rate 20 /min Height 64 inches 5'4" Weight 202.00 lb Pain Level 8 Pain at this time. Pain Level With Medicine 7 on average with meds Pain Level Without Medicine 03/02 without meds Pain Level After Procedure 5 BP Systolic Recheck 140 mmHg Pulse: 88 BP Diastolic Recheck 82 mmHg Pulse: 88 BMI (Body Mass Index) 34.7 kg/m2 11/20/2014 10:37am BP Systolic 140 mmHg BP Diastolic 82 mmHg Heart Rate 88 /min Respiratory Rate 20 /min Height 64 inches 5'4" Weight 194.00 lb Pain Level 8 Pain at this time. Pain Level With Medicine 7 on average with meds Pain Level Without Medicine 03/02 without meds BMI (Body Mass Index) 33.3 kg/m2 11/14/2014 2:04pm BP Systolic 130 mmHg BP Diastolic 78 mmHg Heart Rate 76 /min Respiratory Rate 20 /min Height 64 inches 5'4" Weight 194.00 lb Pain Level 6 Pain at this time. Pain Level With Medicine 5 on average with meds Pain Level Without Medicine 03/02 without meds BMI (Body Mass Index) 33.3 kg/m2 11/12/2014 3:22pm BP Systolic 138 mmHg BP Diastolic 82 mmHg Heart Rate 80 /min Respiratory Rate 20 /min Height 64 inches 5'4" Weight 192.00 lb Pain Level 6 Pain at this time. Pain Level With Medicine 6 on average with meds Pain Level Without Medicine 10 03/02 without meds BMI (Body Mass Index) 33.0 kg/m2 11/05/2014 1:55pm BP Systolic 154 mmHg BP Diastolic 92 mmHg Heart Rate 120 /min Respiratory Rate 22 /min Height 64 inches 5'4" Weight 193.00 lb O2 % BldC Oximetry 96 % Pain Level 9 Pain at this time. Pain Level With Medicine 9 on average with meds Pain Level Without Medicine 10 10 without meds Pain Level After Procedure 6 BP Systolic Recheck 150 mmHg Pulse: 86 BP Diastolic Recheck 88 mmHg Pulse: 86 BMI (Body Mass Index) 33.1 kg/m2 10/29/2014 2:53pm BP Systolic 148 mmHg BP Diastolic 86 mmHg Heart Rate 84 /min Respiratory Rate 20 /min Height 64 inches 5'4" Weight 193.00 lb Pain Level 8 Pain at this time. Pain Level With Medicine 7 on average with meds Pain Level Without Medicine 10 03/02 without meds BMI (Body Mass Index) 33.1 kg/m2 10/18/2014 3:26pm BP Systolic 156 mmHg BP Diastolic 84 mmHg Heart Rate 80 /min Respiratory Rate 20 /min Height 64 inches 5'4" Weight 194.00 lb Pain Level 8 Pain at this time. Pain Level With Medicine 7 on average with meds Pain Level Without Medicine 10 03/02 without meds BMI (Body Mass Index) 33.3 kg/m2 10/12/2014 9:12am BP Systolic 138 mmHg BP Diastolic 82 mmHg Heart Rate 84 /min Respiratory Rate 18 /min Height 64 inches 5'4" Weight 194.00 lb Pain Level 8 8/10, Pain at this time. Pain Level With Medicine 7 Pain Level Without Medicine 10 03/02 without meds Pain Level After Procedure 4 BP Systolic Recheck 148 mmHg Pulse: 76 BP Diastolic Recheck 86 mmHg Pulse: 76 BMI (Body Mass Index) 33.3 kg/m2 10/11/2014 9:53am BP Systolic 142 mmHg BP Diastolic 80 mmHg Heart Rate 78 /min Respiratory Rate 18 /min Height 64 inches 5'4" Weight 194.00 lb Pain Level 7 7/10, Pain at this time. Pain Level Without Medicine 10 03/02 without meds BMI (Body Mass Index) 33.3 kg/m2 Results Description No Information Available Procedures Date Code Description Status 03/24/2018 90865 Therapeutic, Prophylactic Or Diagnostic Injection Subq/Im Completed 02/22/2018 69220 Therapeutic, Prophylactic Or Diagnostic Injection Subq/Im Completed 01/21/2018 28629 Therapeutic, Prophylactic Or Diagnostic Injection Subq/Im Completed 12/10/2017 72802 Therapeutic, Prophylactic Or Diagnostic Injection Subq/Im Completed 11/11/2017 12939 Therapeutic, Prophylactic Or Diagnostic Injection Subq/Im Completed 10/12/2017 02826 Therapeutic, Prophylactic Or Diagnostic Injection Subq/Im Completed 09/10/2017 38015 Therapeutic, Prophylactic Or Diagnostic Injection Subq/Im Completed 08/11/2017 08720 Therapeutic, Prophylactic Or Diagnostic Injection Subq/Im Completed 07/14/2017 04514 Therapeutic, Prophylactic Or Diagnostic Injection Subq/Im Completed 06/14/2017 45539 Therapeutic, Prophylactic Or Diagnostic Injection Subq/Im Completed 05/14/2017 88287 Therapeutic, Prophylactic Or Diagnostic Injection Subq/Im Completed 05/05/2017 28433 Therapeutic, Prophylactic Or Diagnostic Injection Subq/Im Completed 02/18/2017 72586 Therapeutic, Prophylactic Or Diagnostic Injection Subq/Im Completed 07/01/2015 44285 Injection For Nerve Block, Other Peripheral Nerve Or Completed Branch 07/01/2015 01612 U/S Guidance For Needle Placement Completed 05/29/2015 31853 U/S Guidance For Needle Placement Completed 05/29/2015 67762 Injection For Nerve Block, Other Peripheral Nerve Or Completed Branch 04/29/2015 17975 Injection For Nerve Block, Other Peripheral Nerve Or Completed Branch 02/20/2015 23792 Test Autonomic Nervous System, Sudomotor Completed 02/20/2015 53555 U/S Guidance For Needle Placement Completed 02/20/2015 81688 Injection For Nerve Block, Other Peripheral Nerve Or Completed Branch 01/21/2015 91340 U/S Guidance For Needle Placement Completed 01/21/2015 38266 Injection For Nerve Block, Other Peripheral Nerve Or Completed Branch 01/02/2015 69227 U/S Guidance For Needle Placement Completed 01/02/2015 99925 Injection For Nerve Block, Other Peripheral Nerve Or Completed Branch 11/05/2014 31203 U/S Guidance For Needle Placement Completed 11/05/2014 68064 Injection, Single Or Mutiple Trigger Points One Or Two Completed Muscles 10/12/2014 10638 U/S Guidance For Needle Placement Completed 10/12/2014 76024 Inject Tendon/Ligament Completed Encounters Type Date Location Provider Dx Diagnosis Office Visit 05/13/2018 Main Office as [facility] DO G89.21 Chronic pain due 10: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/24/13 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 M54.5 Low back pain Z79.891 correction (current) use of opiate analgesic Z79.891 correction (current) use of opiate analgesic Office Visit 04/27/2018 9:15a Main Office as [facility], 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, MPH lesions of rib cage M54.6 Pain in thoracic spine Z79.891 correction (current) use of opiate analgesic Office Visit 04/11/2018 9:00a Main Office as [facility], 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, 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 M54.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.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 correction (current) use of opiate analgesic Office Visit 03/24/2018 10:15a Main Office as [facility], G89.29 Other chronic Of 06/24/13 DO, MPH pain 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 M54.6 Pain in thoracic spine Z79.891 correction (current) use of opiate analgesic R53.83 Other fatigue Office Visit 03/10/2018 9:00a Main Office as [facility], 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, 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 M54.5 Low back pain Z79.891 correction (current) use of opiate analgesic Z79.891 correction (current) use of opiate analgesic Office Visit 02/22/2018 10:15a Main Office as [facility], G89.29 Other chronic Of 06/24/13 DO, MPH pain 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 M54.6 Pain in thoracic spine R53.83 Other fatigue Z79.891 correction (current) use of opiate analgesic Office Visit 02/11/2018 9:15a Main Office as [facility] [place], 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, 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 M54.5 Low back pain Z79.891 correction (current) use of opiate analgesic Z79.891 correction (current) use of opiate analgesic Office Visit 01/21/2018 11:00a Main Office as [facility], G89.29 Other chronic Of 06/24/13 DO, MPH pain 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 R53.83 Other 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 Office Visit 01/10/2018 10:00a Main Office as [facility] [place], 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, 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 M54.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.891 correction (current) use of opiate analgesic Office Visit 12/23/2017 10:00a Main Office as [facility], G89.29 Other chronic Of 06/24/13 DO, MPH pain 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 M54.6 Pain in thoracic spine 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 Office Visit 12/10/2017 10:00a Main Office as [facility], G89.29 Other chronic Of 06/24/13 DO, MPH pain 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 M54.14 Radiculopathy, thoracic region R53.83 Other fatigue Z79.891 correction (current) use of opiate analgesic Office Visit 12/09/2017 9:45a Main Office as [facility] 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, 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 M54.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.891 correction (current) use of opiate analgesic Office Visit 11/11/2017 9:45a Main Office as [facility], G89.29 Other chronic Of 06/24/13 DO, MPH pain 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 R53.83 Other fatigue Z79.891 correction (current) use of opiate analgesic Office Visit 11/10/2017 9:15a Main Office as JamesLong snyder, 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, 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 M54.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 Office Visit 10/12/2017 9:30a Main Office as JamesLong snyder, G89.29 Other chronic Of 06/24/13 DO, MPH pain 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 M54.14 Radiculopathy, thoracic region R10.84 Generalized abdominal pain R53.83 Other 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 Office Visit 10/11/2017 9:30a Main Office as [facility] 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, 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 M54.5 Low back pain Z79.891 correction (current) use of opiate analgesic 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 Office Visit 09/10/2017 10:00a Main Office as [facility] G89.29 Other chronic Of 06/24/13 DO, MPH pain 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 M54.14 Radiculopathy, thoracic region R10.84 Generalized abdominal pain R53.83 Other 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 Office Visit 09/09/2017 10:00a Main Office as [facility] 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, 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 M54.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.891 correction (current) use of opiate analgesic Office Visit 08/11/2017 9:00a Main Office as [facility] G89.29 Other chronic Of 06/24/13 DO, MPH pain 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 R53.83 Other fatigue Z79.891 correction (current) use of opiate analgesic Office Visit 08/10/2017 9:00a Main Office as [facility] 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, 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 M54.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 Office Visit 07/14/2017 2:15p Main Office as [facility] G89.29 Other chronic Of 06/24/13 DO, MPH pain 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 M54.14 Radiculopathy, thoracic region M54.5 Low back pain Z79.891 correction (current) use of opiate analgesic R53.83 Other fatigue Office Visit 07/07/2017 9:30a Main Office as [facility] 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, 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 M54.5 Low back pain Z79.891 correction (current) use of opiate analgesic Z79.891 correction (current) use of opiate analgesic Office Visit 06/14/2017 2:45p Main Office as [facility] G89.29 Other chronic Of 06/24/13 DO, MPH pain M54.14 Radiculopathy, thoracic region 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 R53.83 Other 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 Office Visit 06/07/2017 9:15a Main Office as [facility] 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, 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 M54.5 Low back pain Z79.891 correction (current) use of opiate analgesic 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 Office Visit 05/25/2017 2:15p Main Office as [facility] G89.29 Other chronic Of 06/24/13 DO, MPH pain M54.14 Radiculopathy, thoracic region 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 M54.5 Low back pain 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 Office Visit 05/14/2017 11:30a Main Office as [facility] G89.29 Other chronic Of 06/24/13 DO, MPH pain M54.14 Radiculopathy, thoracic region 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 M54.5 Low back pain Z79.891 correction (current) use of opiate analgesic R53.83 Other fatigue Office Visit 05/05/2017 11:15a Main Office as [facility] 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, 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 M54.5 Low back pain Z79.891 correction (current) use of opiate analgesic R53.83 Other fatigue Z79.891 correction (current) use of opiate analgesic Office Visit 04/23/2017 1:00p Main Office as [facility] G89.29 Other chronic Of 06/24/13 DO, MPH pain M54.14 Radiculopathy, thoracic region 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 Z79.891 correction (current) use of opiate analgesic Office Visit 04/07/2017 10:15a Main Office as [facility] 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, 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 M54.5 Low back pain Z79.891 correction (current) use of opiate analgesic Z79.891 correction (current) use of opiate analgesic Office Visit 03/24/2017 2:30p Main Office as [facility] G89.29 Other chronic Of 06/24/13 DO, MPH pain M54.14 Radiculopathy, thoracic region 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 Office Visit 03/08/2017 10:30a Main Office as Zahida Lobato 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 M54.5 Low back pain Z71.89 Other specified counseling Z79.891 correction (current) use of opiate analgesic 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 Office Visit 02/18/2017 2:30p Main Office as Long James G89.29 Other chronic Of 06/24/13 DO, MPH pain M54.14 Radiculopathy, thoracic region 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 M54.5 Low back pain Z79.891 correction (current) use of opiate analgesic R53.83 Other fatigue Office Visit 02/03/2017 11:30a Main Office as Zahida Lobato 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 M54.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 Office Visit 01/21/2017 3:00p Main Office as Long James G89.29 Other chronic Of 06/24/13 DO, MPH pain M54.14 Radiculopathy, thoracic region 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 M54.5 Low back pain Z79.891 correction (current) use of opiate analgesic Office Visit 01/06/2017 11:30a Main Office as Zahida Lobato 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 M54.5 Low back pain Z71.89 Other specified counseling 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.891 correction (current) use of opiate analgesic Office Visit 12/25/2016 10:45a Main Office as Long James G89.29 Other chronic Of 06/24/13 DO, MPH pain M54.14 Radiculopathy, thoracic region 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 Z79.891 correction (current) use of opiate analgesic Office Visit 12/07/2016 2:00p Main Office as Long James 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, 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 M54.5 Low back pain Z79.891 correction (current) use of opiate analgesic Z79.891 correction (current) use of opiate analgesic Office Visit 11/20/2016 11:15a Main Office as Long James G89.29 Other chronic Of 06/24/13 DO, MPH pain M54.14 Radiculopathy, thoracic region 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 Office Visit 11/04/2016 10:00a Main Office as Long James 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, 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 M54.5 Low back pain Z79.891 correction (current) use of opiate analgesic 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 Office Visit 10/23/2016 11:30a Main Office as Long James G89.29 Other chronic Of 06/24/13 DO, MPH pain M54.14 Radiculopathy, thoracic region 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 Z79.891 correction (current) use of opiate analgesic Z48.00 Encounter for change or removal of nonsurg wound dressing Office Visit 10/06/2016 10:45a Main Office as Long James 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, 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 M54.5 Low back pain Z79.891 correction (current) use of opiate analgesic 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 Office Visit 09/24/2016 11:15a Main Office as Long James G89.29 Other chronic Of 06/24/13 DO, MPH pain R10.84 Generalized abdominal pain M54.6 Pain in thoracic spine M54.14 Radiculopathy, thoracic region Z79.891 correction (current) use of opiate analgesic Office Visit 09/07/2016 10:00a Main Office as Zahida Lobato 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 M54.5 Low back pain Z71.89 Other specified counseling Z79.891 correction (current) use of opiate analgesic 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 Office Visit 08/26/2016 2:15p Main Office as Zahida Lobato G89.29 Other chronic 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 R10.84 Generalized abdominal pain M54.6 Pain in thoracic spine M54.14 Radiculopathy, thoracic region Z71.89 Other specified counseling 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 Office Visit 08/07/2016 10:15a Main Office as Long James 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, 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 M54.5 Low back pain K59.09 Other constipation Z79.891 correction (current) use of opiate analgesic 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 Office Visit 07/27/2016 2:00p Main Office as Zahida Lobato G89.29 Other chronic 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 M54.6 Pain in thoracic spine R10.84 Generalized abdominal pain M54.14 Radiculopathy, thoracic region Z71.89 Other specified counseling 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 Office Visit 07/07/2016 10:30a Main Office as Zahida Lobato 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 M54.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.891 correction (current) use of opiate analgesic Office Visit 06/26/2016 1:15p Main Office as Zahida Lobato G89.29 Other chronic 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 R10.84 Generalized abdominal pain M54.14 Radiculopathy, thoracic region M54.6 Pain in thoracic spine K21.9 Gastro-esophageal reflux disease without esophagitis I10 Essential (primary) hypertension E78.2 Mixed hyperlipidemia I73.9 Peripheral vascular disease, unspecified E11.42 Type 2 diabetes mellitus with diabetic polyneuropathy Z79.891 correction (current) use of opiate analgesic Office Visit 06/04/2016 10:30a Main Office as Zahida Lobato 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 M54.5 Low back pain Z71.89 Other specified counseling Office Visit 05/20/2016 11:30a Main Office as Long James G89.29 Other chronic Of 06/24/13 DO, MPH pain R10.84 Generalized abdominal pain M54.14 Radiculopathy, thoracic region 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 Office Visit 05/06/2016 11:15a Main Office as Zahida Lobato 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 M54.5 Low back pain K59.09 Other constipation Z71.89 Other specified counseling Z79.891 correction (current) use of opiate analgesic 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 Office Visit 04/07/2016 10:00a Main Office as Zahida Lobato G89.21 Chronic pain Of 2 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 due to trauma M54.5 Low back pain Z71.89 Other specified counseling Z79.891 correction (current) use of opiate analgesic Z79.891 correction (current) use of opiate analgesic Office Visit 03/06/2016 9:45a Main Office as Zahida Lobato G89.21 Chronic pain Of 2 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 due to trauma M54.5 Low back pain Z71.89 Other specified counseling Z79.891 correction (current) use of opiate analgesic K59.09 Other constipation Z79.891 correction (current) use of opiate analgesic Office Visit 02/07/2016 9:15a Main Office as Long James 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, 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 M54.5 Low back pain Z79.891 correction (current) use of opiate analgesic Z79.891 correction (current) use of opiate analgesic Office Visit 01/07/2016 9:00a Main Office as Long James 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, 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 M54.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.891 correction (current) use of opiate analgesic Office Visit 12/04/2015 2:45p Main Office as Long James 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, 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 M54.5 Low back pain S23.41xS Sprain of ribs, sequela 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.891 correction (current) use of opiate analgesic Office Visit 10/01/2015 10:30a Main Office as Long James 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, 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 M54.5 Low back pain Z79.891 correction (current) use of opiate analgesic Z79.891 correction (current) use of opiate analgesic Office Visit 09/04/2015 10:15a Main Office as Long James 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, 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 M54.5 Low back pain Z79.891 correction (current) use of opiate analgesic Office Visit 07/30/2015 9:30a Main Office as Long James 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, 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 M54.5 Low back pain Z79.891 correction (current) use of opiate analgesic Z71.89 Other specified counseling Office Visit 07/04/2015 10:30a Main Office as Long James 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, 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 M54.5 Low back pain Z79.891 correction (current) use of opiate analgesic Office Visit 07/01/2015 3:00p Main Office as Long James G89.29 Other chronic Of 06/24/13 DO, MPH pain R10.84 Generalized abdominal pain 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6 Pain in thoracic spine M54.14 Radiculopathy, thoracic region R10.84 Generalized abdominal pain Office Visit 03/29/2015 9:15a Main Office as Long James 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, 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 M54.5 Low back pain Office Visit 03/27/2015 10:30a Main Office as Long James 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, 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 R10.84 Generalized abdominal pain G90.3 Multi-system degeneration of the autonomic nervous system Z13.89 Encounter for screening for other disorder Office Visit 02/26/2015 4:30p Main Office as Long James 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, 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 M54.5 Low back pain Office Visit 02/21/2015 9:15a Main Office as Long James 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, 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 M54.5 Low back pain Office Visit 02/20/2015 9:45a Main Office as James, Long, V58.69 Medications Long Of 06/24/13 DO, MPH Term (Current) Use Encounter 338.21 Chronic Pain Due To Trauma 724.4 Neuritis Or Radiculitis Thoracic Or Lumbosacral Unspec V58.69 Medications Senior Care (Current) Use Encounter 337.9 Autonomic Nervous System Disorder Unspec Office Visit 02/18/2015 11:15a Main Office as JamesLong snyder, 338.21 Chronic Pain Due Of 06/24/13 DO, MPH To Trauma 724.2 Lumbago Office Visit 02/15/2015 9:30a Main Office as JamesLong snyder, 338.21 Chronic Pain Due Of 06/24/13 DO, MPH To Trauma 724.2 Lumbago Office Visit 01/21/2015 9:30a Main Office as JamesLong snyder, 338.21 Chronic Pain Due Of 06/24/13 DO, MPH To Trauma 724.4 Neuritis Or Radiculitis Thoracic Or Lumbosacral Unspec Office Visit 01/17/2015 10:30a Main Office as JamesJuan snyderph, V58.69 Medications Long Of 06/24/13 DO, MPH Term (Current) Use Encounter 338.21 Chronic Pain Due To Trauma 724.2 Lumbago V58.69 Medications Senior Care (Current) Use Encounter Office Visit 01/02/2015 9:30a Main Office as JamesLong snyder, 338.21 Chronic Pain Due Of 06/24/13 DO, MPH To Trauma 724.4 Neuritis Or Radiculitis Thoracic Or Lumbosacral Unspec 724.2 Lumbago Office Visit 12/18/2014 9:30a Main Office as JamesLong snyder, 338.21 Chronic Pain Due Of 06/24/13 DO, MPH To Trauma 724.2 Lumbago Office Visit 12/05/2014 9:00a Main Office as JamesLong snyder, 338.21 Chronic Pain Due Of 06/24/13 DO, MPH To Trauma 724.2 Lumbago Office Visit 12/04/2014 10:30a Main Office as JamesLong snyder, 338.21 Chronic Pain Due Of 06/24/13 DO, MPH To Trauma 724.4 Neuritis Or Radiculitis Thoracic Or Lumbosacral Unspec Office Visit 11/20/2014 10:45a Main Office as Long James, 338.21 Chronic Pain Due Of 06/24/13 DO, MPH To Trauma 724.4 Neuritis Or Radiculitis Thoracic Or Lumbosacral Unspec Office Visit 11/12/2014 3:15p Main Office as Long James, 338.21 Chronic Pain Due Of 06/24/13 DO, MPH To Trauma 724.4 Neuritis Or Radiculitis Thoracic Or Lumbosacral Unspec 553.9 Hernia Unspec Site Office Visit 11/05/2014 2:15p Main Office as Long James, 338.21 Chronic Pain Due Of 06/24/13 DO, MPH To Trauma 553.9 Hernia Unspec Site 729.1 Myalgia & Myositis Unspec Office Visit 10/29/2014 3:00p Main Office as Long James, 338.21 Chronic Pain Due Of 06/24/13 DO, MPH To Trauma 724.2 Lumbago Office Visit 10/18/2014 3:15p Main Office as Long James, 338.21 Chronic Pain Due Of 06/24/13 DO, MPH To Trauma 338.21 Chronic Pain Due To Trauma 848.3 Sprains & Strains Ribs 848.3 Sprains & Strains Ribs 727.00 Synovitis & Tenosynovitis Unspec 727.00 Synovitis & Tenosynovitis Unspec Office Visit 10/11/2014 9:00a Main Office as Long James, 338.21 Chronic Pain Due Of 06/24/13 DO, MPH To Trauma 724.2 Lumbago 719.45 Pain Joint Pelvic Region & Thigh 729.5 Pain In Limb V65.3 Dietary Surveillance & Counseling V58.83 Encounter For Therapeutic Drug Monitoring Plan of Treatment Future Appointment(s):06/23/2018 9:00 am - Long James DO, MPH at Main Office as Of 06/24/1400 10:30 am - Long James DO, MPH at Main Office as Of 06/24/1400 - Long James DO, MPHG89.29 Other chronic painComments: Chronic. Symptoms and complaints discussed and reviewed today. No significant changes in physical findings. Continue current medical pain management.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Comments:Chronic. Symptoms and complaints discussed and reviewed today. No changes in physical findings; patient is stable on current medical therapy.M54.6 Pain in thoracic spineComments:Chronic.Symptoms and complaints discussed and reviewed today. No significant changes in physical findings. Continue current medical pain management.R53.83 Other fatigueComments:Symptoms and complaints discussed and reviewed today. No significant changes in physical findings. Continue current medical pain management. B12 injection administered after patient evaluated. 1ml IM for fatigue. 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 ~I_A urine drug test (UDT) was ordered for this patient and collected on site today. Creatinine has been ordered as well for specimen validity, not for kidney function. Preliminary UDT results are not final and should not be used to determine patient care or plan of treatment. Initially a qualitative immunoassay screen will be done. Any inconsistent or positive findings will be further tested with a more comprehensive quantitative confirmation LCMS study. It is part of the treatment process of prescribing controlled substances and is considered standard of care.~i_AllComments:All above symptoms and complaints discussed as well as diagnoses reviewed.Continue trial of opioid pain management - note changes below; injection therapy, osteopathic manipulation (OMT), PT / modalities, and consults as needed to manage chronic pain.Side effects discussed; anticipatory guidance given. Patient clearly understands and agrees with all medical treatments and suggestions. All medicines prescribed are adequate and appropriate for this patient's complaint of pain, medical history, physical, and personal goals.Goals of Treatment are to provide adequate and appropriate multidisciplinary medical pain management to increase/ maintain patient's quality of life and functionality while maintaining satisfactory side effect profile and minimizing nursing home end-organ damage. Activity as toleratedContinue with PCP
[2018-06-20 12:56] VITALS: BP 127/70
--- NOTE | 2018-06-20 13:29 | UC ---
Upper Extremity HPI - History of Current Complaint Chief Complaint: UCUpperExtremity Stated Complaint: RIGHT HAND INJURY Time Seen by Provider: 06/20/18 12:47 Hx Obtained From: Patient Pain Intensity: 7 - Allergies/Home Medications Allergies/Adverse Reactions: Allergies Allergy/AdvReac Type Severity Reaction Status Date / Time morphine Allergy See Comment Verified 06/20/18 12:45 pregabalin [From Lyrica] Allergy Dizziness Verified 06/20/18 12:45 flu vaccine Allergy See Comment Uncoded 06/20/18 12:45 pneumovax Allergy See Comment Uncoded 06/20/18 12:45 PMH/Surg Hx/FS Hx/Imm Hx - Additional Past Medical History Additional PMH: Chronic pain syndrome Endocrine History: Dyslipidemia Cardiovascular History: Cardiac Disease, Hypertension Respiratory History: COPD GI/ History: Gastroesophageal Reflux, Other - IBS Other History Of: Hepatitis C - He had this in 1999. He took interferon taken and he has "recovered." , Anticoagulant Therapy - He was on Plavix, but that was stopped due to the hematochezia. Negative For: HIV, Hepatitis B - Surgical History Surgical History: Yes Surgery Procedure, Year, and Place: CELIAC STENT PLACEMENT--2009 SAFE FOR 3T CONDITIONAL 5 ([address] LIMIT). BACK SX 2003. MESENTERIC ARTERY PERIPHERAL STENT REPLACEMENT JULY 20141.5 ONLY-([address]). PT HAS CARDS INFO RECORDED. CATARACTS 2014. Carparal tunnel. ELBOW nerve released. hernia - Family History Known Family History: Positive: Hypertension - Social History Alcohol Use: None Substance Use Type: None Smoking Status (MU): Former Smoker Type: Cigarettes Have You Smoked in the Last Year: No When Did the Patient Quit Smoking/Using Tobacco: 1996 - Immunization History Most Recent Influenza Vaccination: 2016 Most Recent Tetanus Shot: UTD Most Recent Pneumonia Vaccination: N/A Review of Systems All Other Systems Reviewed And Are Negative: Yes Constitutional: Negative: Fever, Chills Skin: Negative: Rash Respiratory: Positive: Negative Cardiovascular: Positive: Negative Gastrointestinal: Positive: Negative Genitourinary: Positive: Negative Motor: Negative: Weakness Neurovascular: Negative: Decreased Sensation Musculoskeletal: Positive: Arthralgia - See HPI Neurological: Positive: Negative Is Patient Immunocompromised?: No Physical Exam - Summary Physical Exam Summary: GENERAL APPEARANCE: Well developed, well nourished, alert and cooperative, and appears to be in no acute distress. CARDIAC: Normal S1 and S2. No S3, S4 or murmurs. Rhythm is regular. There is no peripheral edema, cyanosis or pallor. Extremities are warm and well perfused. Capillary refill is less than 2 seconds. Peripheral pulses intact. LUNGS: Clear to auscultation without rales, rhonchi, wheezing or diminished breath sounds. ABDOMEN: Positive bowel sounds. Soft, nondistended, nontender. No guarding or rebound. No masses or hepatosplenomegally. MUSKULOSKELETAL: Mild tenderness to the ulnar wrist over the flexor carpal ulnaris with mild swelling. No gross deformity or bony point tenderness. Flexion and extension mild decreased due to pain. Circulation and sensation intact. NEUROLOGICAL: Strength and sensation symmetric and intact. SKIN: Healing open blister base of dorsal right thumb without redness, swelling , or discharge. Triage Information Reviewed: Yes Vital Signs: Initial Vital Signs Temp 98.1 F 06/20/18 12:50 Pulse 94 06/20/18 12:50 Resp 18 06/20/18 12:50 BP 127/70 06/20/18 12:50 Pulse Ox 97 06/20/18 12:50 Vital Signs Reviewed: Yes Diagnostics - Radiology No standard instances Radiology Interpretation Completed By: Radiologist Summary of Radiographic Findings: Patient Name: ARETHA ISIDRO Medical Record#: [id number]. Ordering Physician: [id number] : 1960 Age: 57 Sex: M Location: [facility] [place]. Exam Date: 1306 ADM Status: REG ER. Order Information: WRIST RIGHT 3+ VWS. Accession Number: [id number]. CPT: 40119. Indication: Right wrist pain. 3 views of the wrist demonstrates no fracture. No other bone or joint abnormality is. identified. IMPRESSION: NO FRACTURE OF THE WRIST IS NOTED. Upper Extremity Course/Dx - Course Course Of Treatment: 57 year old male presents with 4 day history of nontraumatic ulnar wrist pain. Pain is a constant aching that worsens with movement, most notably extension of the wrist. He reports he had a blood blister to the dorsal right hand at the base of his thumb that opened and crusted over. Denies fever, chills, erythema, drainage, numbness, or tingling. Afebrile. VSS. Exam revealed an adult male in no acute distress with mild tenderness to the ulnar wrist over the flexor carpal ulnaris with mild swelling. No gross deformity or bony point tenderness. Flexion and extension mild decreased due to pain. Circulation and sensation intact. X-ray negative for fracture. Recommending conservative treatment for tenosynovitis with a cock- up wrist splint and RICE. He is to continue to take his pain medications as prescribed. Due to his CAD and being on Plavix NSAIDs are not recommended. He is to follow up with orthopedic surgery in 1 week if symptoms do not improve. Anticipatory guidance and warning symptoms reviewed with patient. Verbalizes understanding and agrees with POC. - Differential Dx/Diagnosis Differential Diagnosis/HQI/PQRI: Arthritis, Contusion, Fracture (Closed), Septic Arthritis, Strain, Sprain Provider Diagnosis: Tenosynovitis of right wrist Discharge - Sign-Out/Discharge Documenting (check all that apply): Patient Departure All imaging exams completed and their final reports reviewed: Yes - Discharge Plan Condition: Stable Disposition: HOME Patient Education Materials: Tenosynovitis (ED) Referrals: Canelo Jackson MD [Primary Care Provider] - Felix Trevizo MD [Medical Doctor] - 7 Days (If no improvement in symptoms. Call for appoinment.) Additional Instructions: The x-ray of your wrist performed in the clinic today showed no evidence of a fracture. I suspect that your pain is from an inflammatory condition called tenosynovitis. Rest the wrist as much as possible. Avoid heavy lifting and strenuous activities. Wear the splint that was provided to you for support and comfort. Apply ice to the affected area for 15-20 minutes at least 4 times a day to help with pain and swelling. Keep the arm elevated at the level of your heart to help reduce swelling. Continue using your pain medications as directed. Follow up with Dr. Trevizo, orthopedic surgery, in 7 days if symptoms persist. Call for an appointment. Seek immediate medical attention in the emergency room if your develop fever greater than 100.5 F, have worsening pain despite using pain medications, develop numbness or tingling in the hand or fingers, the hand or finger turn a pale or blue, or you have any worsening of symptoms. - Billing Disposition and Condition Condition: STABLE Disposition: Home
== END 2018-06-20 13:52 | disposition home or self-care (01) ==
LOC: UCCORT 12:23
DX: M65.88 Other synovitis and tenosynovitis, other site (principal); S60.521D Blister (nonthermal) of right hand, subsequent encounter; I10 Essential (primary) hypertension; J44.9 Chronic obstructive pulmonary disease, unspecified; K58.9 Irritable bowel syndrome, unspecified; Z87.891 Personal history of nicotine dependence; Z88.5 Allergy status to narcotic agent; Z88.1 Allergy status to other antibiotic agents; Z88.8 Allergy status to other drugs, medicaments and biological substances; Z88.7 Allergy status to serum and vaccine; X58.XXXD Exposure to other specified factors, subsequent encounter
CPT/HCPCS: 99213; G0463

== ENCOUNTER 2018-11-22 10:53 | Emergency (ER) | payer MEDICARE, MEDICAID ==
[2018-11-22 11:58] VITALS: BP 127/66
--- NOTE | 2018-11-22 12:46 | UC ---
Shoulder Pain HPI - HPI Summary HPI Summary: left shoulder pain x 3 days , pain is severe , 8 out of 10 , worse with moving his left arm , better with rest and ice no known injury - History of Current Complaint Chief Complaint: UCUpperExtremity Stated Complaint: L SHOULDER PAIN Time Seen by Provider: 11/22/18 11:58 Hx Obtained From: Patient Onset/Duration: Gradual Onset, Lasting Days - 3, Still Present Timing: Constant Severity Initially: Severe Severity Currently: Severe Pain Intensity: 8 Character: Sharp, Throbbing Aggravating Factor(s): Movement Alleviating Factor(s): Rest, Ice Associated Signs And Symptoms: Positive: Weakness. Negative: Swelling, Redness , Bruising, Fever, Numbness/Tingling - Allergies/Home Medications Allergies/Adverse Reactions: Allergies Allergy/AdvReac Type Severity Reaction Status Date / Time morphine Allergy See Comment Verified 11/22/18 11:41 pregabalin [From Lyrica] Allergy Dizziness Verified 11/22/18 11:41 flu vaccine Allergy See Comment Uncoded 11/22/18 11:41 pneumovax Allergy See Comment Uncoded 11/22/18 11:41 Home Medications: Home Medications Aspirin 81 mg CHEW TAB* [Aspirin Low Dose TAB*] 81 mg PO DAILY 11/22/18 [ History Confirmed 11/22/18] Spironolactone TAB* [Aldactone TAB*] 100 mg PO DAILY 11/22/18 [History Confirmed 11/22/18] predniSONE TAB* [Deltasone 10 MG TAB*] 10 mg PO DAILY 11/22/18 [History Confirmed 11/22/18] PMH/Surg Hx/FS Hx/Imm Hx Cardiovascular History: Cardiac Disease, Hypertension, Congestive Heart Failure Respiratory History: COPD, Asthma Other History Of: Hepatitis C - He had this in 1999. He took interferon taken and he has "recovered." , Anticoagulant Therapy - He was on Plavix, but that was stopped due to the hematochezia. Negative For: HIV, Hepatitis B - Surgical History Surgical History: Yes Surgery Procedure, Year, and Place: CELIAC STENT PLACEMENT--2009 SAFE FOR 3T CONDITIONAL 5 ([address] LIMIT). BACK SX 2003. MESENTERIC ARTERY PERIPHERAL STENT REPLACEMENT JULY 20141.5 ONLY-([address] LIM[address]). PT HAS CARDS INFO RECORDED. CATARACTS 2015. Carparal tunnel. ELBOW nerve released. hernia - Family History Known Family History: Positive: Hypertension - Social History Alcohol Use: None Substance Use Type: None Smoking Status (MU): Former Smoker Type: Cigarettes Have You Smoked in the Last Year: No When Did the Patient Quit Smoking/Using Tobacco: 1996 - Immunization History Most Recent Influenza Vaccination: 2015 Most Recent Tetanus Shot: UTD Most Recent Pneumonia Vaccination: N/A Review of Systems All Other Systems Reviewed And Are Negative: Yes Constitutional: Positive: Negative Skin: Positive: Negative Eyes: Positive: Negative ENT: Positive: Negative Respiratory: Positive: Negative Is Patient Immunocompromised?: No Physical Exam Triage Information Reviewed: Yes Appearance: Ill-Appearing, Pain Distress Vital Signs: Initial Vital Signs Temp 97.5 F 11/22/18 11:37 Pulse 65 11/22/18 11:37 Resp 19 11/22/18 11:37 BP 127/66 11/22/18 11:37 Pulse Ox 97 11/22/18 11:37 Vital Signs Reviewed: Yes Eye Exam: Normal Eyes: Positive: Conjunctiva Clear ENT: Positive: Normal ENT inspection, Hearing grossly normal, Pharynx normal Neck: Positive: Supple, Nontender, No Lymphadenopathy Respiratory: Positive: Chest non-tender, Lungs clear, Normal breath sounds Cardiovascular: Positive: RRR, No Murmur, Pulses Normal Neurological: Positive: Other: - left shoulder : no swelling, no erythema or bruising, + diffuse tenderness limited ROM on flexion , extension, abduction, . limited strength Diagnostics - Radiology No standard instances Radiology Interpretation Completed By: Radiologist Summary of Radiographic Findings: IMPRESSION: 1. SOFT TISSUE CALCIFICATION SUGGESTIVE OF A CALCIFIC TENDINOPATHY. 2. OSTEOARTHRITIS. 3. NO ACUTE OSSEOUS INJURY. IF SYMPTOMS PERSIST, RECOMMEND REPEAT IMAGING. Shoulder Course/Dx - Differential Dx/Diagnosis Provider Diagnosis: Calcific tendonitis of left shoulder Discharge - Sign-Out/Discharge Documenting (check all that apply): Patient Departure All imaging exams completed and their final reports reviewed: Yes - Discharge Plan Condition: Stable Disposition: HOME Prescriptions: predniSONE TAB* [Deltasone 20 MG TAB*] 40 mg PO DAILY #10 tab Patient Education Materials: Calcific Tendinitis (ED) Referrals: Canelo Jackson MD [Primary Care Provider] - 7 Days - Billing Disposition and Condition Condition: STABLE Disposition: Home
== END 2018-11-22 12:50 | disposition home or self-care (01) ==
LOC: UCCORT 10:53
DX: M75.32 Calcific tendinitis of left shoulder (principal); I11.0 Hypertensive heart disease with heart failure; I50.9 Heart failure, unspecified; J44.9 Chronic obstructive pulmonary disease, unspecified; Z87.891 Personal history of nicotine dependence
CPT/HCPCS: 93005; 99212; G0463